=== PATIENT | male | born 1995 | race African-American/Black ===

== ENCOUNTER 2016-08-15 06:51 | Outpatient (CLI) | payer OTHER ==
[~2016-08-15] VITALS: Ht 175.3 cm; Wt 88.6 kg
[2016-08-15] MEDS ORDERED: no home medications (07:07)
[2016-08-15 07:18] VITALS: BP 121/36; PULSE 62; TEMP 98.6
[2016-08-15 09:35] VITALS: BP 131/86; PULSE 61
== END 2016-08-15 09:58 | disposition home or self-care (01) ==
LOC: EUO 06:51 → COL.RAD 07:30 → EUO 09:58
DX: R55 Syncope and collapse (principal)

== ENCOUNTER → 2016-12-01 | Outpatient (CLI) | payer OTHER ==
[~2016-12-01] MED LIST: no home medications
== END ==
LOC: COL.PUL 09:00
DX: R06.02 Shortness of breath (principal)
CPT/HCPCS: J7674